=== PATIENT | female | born 1960 | race Caucasian/White ===

== ENCOUNTER 2016-12-10 07:56 | Day surgery (SDC) | payer OTHER ==
[~2016-12-10] VITALS: Ht 149.9 cm; Wt 76.1 kg
[2016-12-10] MEDS ORDERED: BENAZEPRIL PO (08:46)
[2016-12-10] MEDS ORDERED: PHENYTOIN PO (08:46)
[2016-12-10] MEDS ORDERED: AMLODIPINE PO (08:46)
[2016-12-10] MEDS ORDERED: TRIAMTERENE PO (08:46)
[2016-12-10] MEDS ORDERED: [UNRECOGNIZED DRUG - OTHER] PO (08:46)
[2016-12-10] MEDS ORDERED: SIMVASTATIN PO (08:46)
[2016-12-10 08:49] VITALS: Ht 149.9 cm; Wt 76.1 kg
[2016-12-10] MEDS ORDERED: PROPOFOL 40 ML ONE (09:32)
[2016-12-10 09:34] VITALS: BP 121/58; PULSE 60; RESP 18
[2016-12-10 09:39] VITALS: BP 120/63; PULSE 65; RESP 15
[2016-12-10] MEDS ORDERED: PROPOFOL 20 ML ONE (10:32)
--- NOTE | 2016-12-10 10:34 | OPPN ---
Date/Time of Note Date/Time of Note DATE: 12/10/16 TIME: 10:32 Operative Report Preoperative Diagnosis Positive occult blood in stool Postoperative Diagnosis Sigmoid colon polyp Internal hemorrhoids Diverticulosis of the colon Operation/Procedure Performed Colonoscopy and biopsy Anesthesia Type: MAC Estimated blood loss: none Transfusion Required: no Specimens Sigmoid colon polyp Grafts/Implants: none Complications: no TERESA BOYLE MD Dec 10, 2016 10:34
--- NOTE | 2016-12-10 10:55 | GILP ---
DATE OF PROCEDURE: 12/10/2016 PROCEDURE PERFORMED: Colonoscopy and biopsy. PREOPERATIVE DIAGNOSIS: Positive occult blood in stool. POSTOPERATIVE DIAGNOSES: 1. Colonoscopy all the way to the cecum. 2. Small sigmoid colon polyp was removed using the biopsy forceps. 3. Diverticulosis of the colon. 4. Internal hemorrhoids. INDICATION: Ms. Shayna June is a 56-year-old female patient who was noted to have positive occult blood in stool. The patient was scheduled for colonoscopy for further evaluation. The procedure and possible complications were well explained to the patient. She understood and consented to the procedure. DESCRIPTION OF PROCEDURE: Under influence of anesthesia, the colonoscope was carefully introduced into the rectum and under direct vision it was advanced all the way to the cecum. FINDINGS: Patient had a small sigmoid colon polyp and it was removed using the biopsy forceps. She was noted to have diverticulosis of the colon and internal hemorrhoids. She tolerated the procedure very well. There was no complication from the procedure. At the end of procedure, she was awake with stable vital signs and she was discharged home in the care of her family. IMPRESSION: Please see postop diagnoses. PLAN: Next screening colonoscopy in 10 years. Dictated By: MD BETTY Hardin/aime/jose miguel /Document#: [id number] CC: Nicole Zimmerman MD;*End*
[2016-12-10 10:57] VITALS: BP 120/67; PULSE 63; RESP 14
== END 2016-12-10 18:14 | disposition home or self-care (01) ==
LOC: GIL 07:56
PROVIDERS: ATTEND Internal Medicine Gastroenterology
DX: K92.1 Melena (principal); D12.5 Benign neoplasm of sigmoid colon; K57.90 Diverticulosis of intestine, part unspecified, without perforation or abscess without bleeding; K64.8 Other hemorrhoids; I10 Essential (primary) hypertension; E78.5 Hyperlipidemia, unspecified
CPT/HCPCS: 45380; 88305; Z7610